=== PATIENT | female | born 1990 | race African-American/Black ===

== ENCOUNTER 2018-08-10 20:46 | Emergency (ER) | payer MEDICAID ==
[~2018-08-10] VITALS: Ht 165.1 cm; Wt 48.0 kg
[2018-08-10] MEDS ORDERED: ACETAMINOPHEN 325MG TABLET PO ONE (23:15)
[2018-08-11 01:00] VITALS: BP 133/76
== END 2018-08-11 01:40 | disposition home or self-care (01) ==
LOC: ER 20:46
DX: J02.9 Acute pharyngitis, unspecified (principal); R06.02 Shortness of breath; R20.0 Anesthesia of skin; F17.200 Nicotine dependence, unspecified, uncomplicated
CPT/HCPCS: 81025; 87070; 87430; 93005; 99283

== ENCOUNTER 2021-01-01 01:22 | Emergency (ER) | payer MEDICAID, OTHER ==
[~2021-01-01] VITALS: Ht 165.1 cm; Wt 62.0 kg
[2021-01-01] MEDS ORDERED: PENI500T MT (02:19)
[2021-01-01 02:38] VITALS: BP 121/70
== END 2021-01-01 02:39 | disposition home or self-care (01) ==
LOC: ER 01:22
DX: J02.9 Acute pharyngitis, unspecified (principal)
CPT/HCPCS: 87070; 87430; 99283

== ENCOUNTER 2022-05-06 13:10 | Emergency (ER) | payer MEDICAID ==
[~2022-05-06] VITALS: Ht 165.1 cm; Wt 66.0 kg
[~2022-05-06 13:10] MED LIST: PENI500T MT
[2022-05-06 14:03] VITALS: BP 131/92
[2022-05-06] MEDS ORDERED: IBUP-2029 MT (15:04)
[2022-05-06] MEDS ORDERED: IBUPROFEN 600MG TABLET PO ONE (15:15)
== END 2022-05-06 15:25 | disposition home or self-care (01) ==
LOC: ER 13:10
DX: J02.9 Acute pharyngitis, unspecified (principal); H92.01 Otalgia, right ear
CPT/HCPCS: 87070; 87430; 99283